=== PATIENT | male | born 1970 | race Caucasian/White ===

== ENCOUNTER → 2016-10-13 | Outpatient (REF) | payer OTHER ==
[~2016-10-13] MED LIST: ASPI81TA85 PO; GLIP5TAB8 PO; LISI-538 PO; METF-700 PO
[2016-10-13 15:59] LABS: ALBUMIN 3.2 GM/DL (3.2-5.2); ALKALINE PHOSPHATASE 124 U/L (45-117); ALT/SGPT 27 U/L (12-78); ANION GAP 7 MEQ/L (8-16); AST/SGOT 13 U/L (15-37); BILIRUBIN,TOTAL 0.2 MG/DL (0.2-1.0); BLOOD UREA NITROGEN 13 MG/DL (7-18); CALCIUM LEVEL 8.6 MG/DL (8.5-10.1); CARBON DIOXIDE LEVEL 29 MEQ/L (21-32); CHLORIDE LEVEL 100 MEQ/L (98-107); CHOLESTEROL LEVEL 140 MG/DL (<200); CREATININE FOR GFR 0.76 MG/DL (0.70-1.30); GLOMERULAR FILTRATION RATE > 60.0 (>60); GLUCOSE, FASTING 297 MG/DL (70-105); POTASSIUM SERUM 4.8 MEQ/L (3.5-5.1); SODIUM LEVEL 136 MEQ/L (136-145); TOTAL PROTEIN 6.1 GM/DL (6.4-8.2); TRIGLYCERIDES LEVEL 127 MG/DL (<150)
== END ==
LOC: M SFHCLACO 09:29
PROVIDERS: ATTEND Physician Assistant
DX: E11.8 Type 2 diabetes mellitus with unspecified complications (principal); I10 Essential (primary) hypertension; E78.1 Pure hyperglyceridemia

== ENCOUNTER → 2017-01-05 | Outpatient (CLI) | payer OTHER ==
[~2017-01-05] VITALS: Ht 172.7 cm; Wt 74.8 kg
[~2017-01-05] MED LIST changes: +COLA100C5 PO; +GLIP10TA6 PO; +LIDOCAINE 2% INJ 100 MG/5 ML SDV (FOR ANES.) As Ordered ONE; +METF-414 PO; +NS 1,000 ML IV ONE; +PREPCRE PR; +PROPOFOL 500 MG/50 ML VIAL As Ordered ONE; +fentaNYL 100 MCG/2 ML INJECTION (J3010) As Ordered ONE
--- NOTE | 2017-01-05 12:25 | ROOR ---
Patient Name: Jose Best Procedure Date: 01/05/2017 12:11 PM Date of : 1970 Age: 46 Room: [facility] Gender: Male Note Status: Finalized Procedure: Upper GI endoscopy Indications: Weight loss Providers: Dwight BELLAMY MD Referring MD: ANGI Mukherjee PA-C Requesting Provider: Medicines: Monitored Anesthesia Care Complications: No immediate complications. Procedure: Pre-Anesthesia Assessment: - The heart rate, respiratory rate, oxygen saturations, blood pressure, adequacy of pulmonary ventilation, and response to care were monitored throughout the procedure. The Endoscope was introduced through the mouth, and advanced to the third part of duodenum. The upper GI endoscopy was accomplished without difficulty. The patient tolerated the procedure well. Findings: The esophagus was normal. The stomach was normal. The examined duodenum was normal. Impression: - Normal esophagus. - Normal stomach. - Normal examined duodenum. - No specimens collected. Recommendation: - Perform a colonoscopy today. Dwight Bellamy MD Dwight BELLAMY MD 01/05/2017 12:25:24 PM This report has been signed electronically. Number of Addenda: 0 Note Initiated On: 01/05/2017 12:11 PM Estimated Blood Loss: Estimated blood loss: none.
--- NOTE | 2017-01-05 12:42 | ROOR ---
Patient Name: Jose Best Procedure Date: 01/05/2017 12:12 PM Date of : 1970 Age: 46 Room: [facility] Gender: Male Note Status: Finalized Procedure: Colonoscopy Indications: Weight loss Providers: Dwight BELLAMY MD Referring MD: ANGI Mukherjee PA-C Requesting Provider: Medicines: Monitored Anesthesia Care Complications: No immediate complications. Procedure: Pre-Anesthesia Assessment: - The heart rate, respiratory rate, oxygen saturations, blood pressure, adequacy of pulmonary ventilation, and response to care were monitored throughout the procedure. The Colonoscope was introduced through the anus and advanced to 7 cm into the ileum. The colonoscopy was performed without difficulty. The patient tolerated the procedure well. The quality of the bowel preparation was good. Findings: The perianal and digital rectal examinations were normal. Internal hemorrhoids were found during retroflexion. The hemorrhoids were medium-sized. A 6 mm polyp was found in the sigmoid colon. The polyp was sessile. The polyp was removed with a cold snare. Resection and retrieval were complete. The rest of the colon and terminal ileum exam are otherwise without abnormality. Impression: - Internal hemorrhoids. - One 6 mm polyp in the sigmoid colon, removed with a cold snare. Resected and retrieved. - The rest of the colon and terminal ileum are otherwise normal. Recommendation: - Repeat colonoscopy in 3 years for surveillance. Dwight Bellamy MD Dwight BELLAMY MD 01/05/2017 12:42:11 PM This report has been signed electronically. Number of Addenda: 0 Note Initiated On: 01/05/2017 12:12 PM Estimated Blood Loss: Estimated blood loss: none.
[2017-01-05 13:05] VITALS: BP 141/86
== END | disposition home or self-care (01) ==
LOC: M OPP 10:39
PROVIDERS: ATTEND Internal Medicine Gastroenterology
DX: R63.4 Abnormal weight loss (principal); K62.5 Hemorrhage of anus and rectum; D12.5 Benign neoplasm of sigmoid colon; K64.8 Other hemorrhoids; I10 Essential (primary) hypertension; E11.9 Type 2 diabetes mellitus without complications; Z79.82 Long term (current) use of aspirin; Z79.84 Long term (current) use of oral hypoglycemic drugs; Z79.899 Other long term (current) drug therapy

== ENCOUNTER 2017-06-14 13:29 | Emergency (ER) | payer OTHER ==
[2017-06-14] MEDS: NS 1,000 ML IV ×2 (14:45→14:53)
[2017-06-14 15:09] LABS: BASO % 0.3 % (0.0-1.0); EOS % 0.4 % (0.0-3.0); HEMATOCRIT 43.1 % (42.0-52.0); HEMOGLOBIN 15.4 g/dl (14.0-18.0); IMMATURE GRANULOCYTE # 0.1 10^3/uL (0-0); IMMATURE GRANULOCYTE % 0.5 % (0-0); LYMPH # 1.8 10^3/uL (1.5-4.5); LYMPH % 18.8 % (24.0-44.0); MEAN CORPUSCULAR HEMOGLOBIN 28.7 pg (27.0-33.0); MEAN CORPUSCULAR HGB CONC 35.7 g/dl (32.0-36.5); MEAN CORPUSCULAR VOLUME 80.4 fl (80.0-96.0); MONO # 0.7 10^3/uL (0.0-0.8); MONO % 7.1 % (0.0-5.0); NEUTROPHILS % 72.9 % (36.0-66.0); PLATELET COUNT, AUTOMATED 331 10^3/uL (150-450); RED BLOOD COUNT 5.36 10^6/uL (4.30-6.10); RED CELL DISTRIBUTION WIDTH 11.6 % (11.5-14.5); WHITE BLOOD COUNT 9.6 10^3/uL (4.0-10.0)
[2017-06-14 15:22] LABS: BEDSIDE GLUCOSE 364 MG/DL (70-105)
[2017-06-14 15:26] LABS: ALBUMIN 3.5 GM/DL (3.2-5.2); ALKALINE PHOSPHATASE 188 U/L (45-117); ALT/SGPT 45 U/L (12-78); ANION GAP 12 MEQ/L (8-16); AST/SGOT 17 U/L (7-37); BILIRUBIN,TOTAL 0.6 MG/DL (0.2-1.0); BLOOD UREA NITROGEN 25 MG/DL (7-18); CALCIUM LEVEL 9.2 MG/DL (8.5-10.1); CARBON DIOXIDE LEVEL 23 MEQ/L (21-32); CHLORIDE LEVEL 89 MEQ/L (98-107); CREATININE FOR GFR 0.86 MG/DL (0.70-1.30); GLOMERULAR FILTRATION RATE > 60.0 (>60); POTASSIUM SERUM 4.7 MEQ/L (3.5-5.1); SODIUM LEVEL 124 MEQ/L (136-145)
[2017-06-14] MEDS: HumuLIN R (REGULAR) INSULIN (NovoLIN R) **100U/ML** PER UNIT IV (15:26)
[2017-06-14 15:38] LABS: ACETONE/KETONE 19.31 MG/DL (<2.81)
[2017-06-14 15:38] LABS: VENOUS BASE EXCESS -4.9 (-2.0-2.0); VENOUS O2 SATURATION 94.9 % (60.0-80.0); VENOUS PARTIAL PRESSURE CO2 32.3 mmHg (38.0-50.0); VENOUS PARTIAL PRESSURE O2 72.9 mmHg (30.0-50.0); VENOUS PH 7.387 UNITS (7.330-7.430); VENOUS STANDARD HCO3 20.4 MEQ/L
[2017-06-14 15:40] LABS: ESTIMATED AVERAGE GLUCOSE 381 MG/DL (60-110); GLUCOSE, FASTING 431 MG/DL (70-105); HEMOGLOBIN A1c 14.9 %
[2017-06-14 16:08] LABS: BEDSIDE GLUCOSE 284 MG/DL (70-105)
[2017-06-14 16:17] LABS: OSMOLALITY SERUM 291 MOSM/KG (275-295)
[2017-06-14 16:37] LABS: APPEARANCE, URINE CLEAR (CLEAR); BACTERIA, URINE AUTO 1+ (NEGATIVE); BILIRUBIN, URINE AUTO NEGATIVE (NEGATIVE); BLOOD, URINE BLOOD NEGATIVE (NEGATIVE); COLOR, URINE YELLOW (YELLOW); GLUCOSE, URINE (UA) AUTO 3+ mg/dL (NEGATIVE); KETONE, URINE AUTO 1+ mg/dL (NEGATIVE); LEUKOCYTE ESTERASE, URINE AUTO NEGATIVE (NEGATIVE); MUCUS, URINE SMALL (NEGATIVE); NITRITE, URINE AUTO NEGATIVE (NEGATIVE); PROTEIN, URINE AUTO NEGATIVE (NEGATIVE); RBC, URINE AUTO 1 /HPF (0-3); SPECIFIC GRAVITY URINE AUTO 1.036 (1.002-1.035); SQUAMOUS EPITHELIAL CELL UR AU 0 /HPF (0-6); UROBILINOGEN, URINE AUTO 0.2 mg/dL (0.0-2.0); WBC, URINE AUTO 1 /HPF (0-3)
== END 2017-06-14 17:27 | disposition home or self-care (01) ==
LOC: M ED 13:29
DX: E11.65 Type 2 diabetes mellitus with hyperglycemia (principal); E86.0 Dehydration; Z79.899 Other long term (current) drug therapy; Z79.82 Long term (current) use of aspirin; Z79.84 Long term (current) use of oral hypoglycemic drugs; Z87.891 Personal history of nicotine dependence
CPT/HCPCS: 83930

== ENCOUNTER → 2017-06-24 | Outpatient (REF) | payer OTHER ==
[2017-06-24 15:40] LABS: ALBUMIN 3.4 GM/DL (3.2-5.2); ALBUMIN/GLOBULIN RATIO 1.26 (1.00-1.93); ALKALINE PHOSPHATASE 116 U/L (45-117); ALT/SGPT 51 U/L (12-78); ANION GAP 8 MEQ/L (8-16); AST/SGOT 27 U/L (7-37); BILIRUBIN,TOTAL 0.6 MG/DL (0.2-1.0); BLOOD UREA NITROGEN 12 MG/DL (7-18); CALCIUM LEVEL 8.4 MG/DL (8.5-10.1); CARBON DIOXIDE LEVEL 28 MEQ/L (21-32); CHLORIDE LEVEL 98 MEQ/L (98-107); CHOLESTEROL LEVEL 221 MG/DL (<200); CHOLESTEROL RISK RATIO 4.169 (<5); CREATININE FOR GFR 0.74 MG/DL (0.70-1.30); GLOMERULAR FILTRATION RATE > 60.0 (>60); GLUCOSE, FASTING 297 MG/DL (70-105); HDL CHOLESTEROL 53 MG/DL (>40); LDL CHOLESTEROL 129.4 MG/DL (<100); NON-HDL-C 168 MG/DL; POTASSIUM SERUM 4.1 MEQ/L (3.5-5.1); SODIUM LEVEL 134 MEQ/L (136-145); TOTAL PROTEIN 6.1 GM/DL (6.4-8.2); TRIGLYCERIDES LEVEL 193 MG/DL (<150)
[2017-06-24 20:19] LABS: ESTIMATED AVERAGE GLUCOSE 413 MG/DL (60-110); HEMOGLOBIN A1c > 16.0 %
== END ==
LOC: M SFHCLACO 09:54
DX: E11.8 Type 2 diabetes mellitus with unspecified complications (principal); E78.1 Pure hyperglyceridemia; I10 Essential (primary) hypertension
CPT/HCPCS: 83036

== ENCOUNTER 2018-12-25 15:10 | Emergency (ER) | payer OTHER, SELFPAY ==
[~2018-12-25] VITALS: Ht 170.2 cm; Wt 65.9 kg
[~2018-12-25 15:10] MED LIST changes: -LIDOCAINE 2% INJ 100 MG/5 ML SDV (FOR ANES.) As Ordered ONE; -NS 1,000 ML IV ONE; -PROPOFOL 500 MG/50 ML VIAL As Ordered ONE; -fentaNYL 100 MCG/2 ML INJECTION (J3010) As Ordered ONE
[2018-12-25 16:42] LABS: BASO % 0.4 % (0.0-1.0); EOS % 0.3 % (0.0-3.0); HEMATOCRIT 47.4 % (42.0-52.0); HEMOGLOBIN 15.9 g/dl (13.5-17.5); LYMPH # 0.8 10^3/uL (1.5-4.5); LYMPH % 9.8 % (24.0-44.0); MEAN CORPUSCULAR HGB CONC 33.5 g/dl (32.0-36.5); MEAN CORPUSCULAR VOLUME 86.5 fl (80.0-96.0); MONO # 0.3 10^3/uL (0.0-0.8); MONO % 3.6 % (0.0-5.0); NEUTROPHILS # 6.7 10^3/uL (1.8-7.7); NEUTROPHILS % 85.6 % (36.0-66.0); PLATELET COUNT, AUTOMATED 248 10^3/uL (150-450); RED BLOOD COUNT 5.48 10^6/uL (4.30-6.10); VENOUS BASE EXCESS -0.6 (-2.0-2.0); VENOUS HCO3 25.7 MEQ/L (23.0-27.0); VENOUS O2 SATURATION 73.8 % (60.0-80.0); VENOUS PARTIAL PRESSURE CO2 48.3 mmHg (38.0-50.0); VENOUS PARTIAL PRESSURE O2 40.5 mmHg (30.0-50.0); VENOUS PH 7.344 UNITS (7.330-7.430); VENOUS STANDARD HCO3 23.3 MEQ/L; VENOUS TOTAL CO2 27.2 MEQ/L (24.0-28.0); WHITE BLOOD COUNT 7.9 10^3/uL (4.0-10.0)
[2018-12-25] MEDS ORDERED: NS 1,000 ML IV ONE (17:15)
[2018-12-25] MEDS ORDERED: MORPHINE 2 MG/ML 1ML SYRINGE (J2270) IV ONE (17:15)
[2018-12-25] MEDS ORDERED: ONDANSETRON 4MG/2ML VIAL (J2405) IV ONE (17:15)
[2018-12-25 17:47] LABS: ALBUMIN 3.8 GM/DL (3.2-5.2); ALT/SGPT 23 U/L (12-78); BILIRUBIN,DIRECT 0.1 MG/DL (0.0-0.2); BILIRUBIN,TOTAL 0.7 MG/DL (0.2-1.0); BLOOD UREA NITROGEN 23 MG/DL (7-18); CALCIUM LEVEL 9.1 MG/DL (8.5-10.1); CARBON DIOXIDE LEVEL 25 MEQ/L (21-32); CHLORIDE LEVEL 104 MEQ/L (98-107); CREATININE FOR GFR 0.83 MG/DL (0.70-1.30); GLOMERULAR FILTRATION RATE > 60.0 (>56); GLUCOSE, FASTING 220 MG/DL (70-100); LIPASE 295 U/L (73-393); POTASSIUM SERUM 4.3 MEQ/L (3.5-5.1); SODIUM LEVEL 137 MEQ/L (136-145); TOTAL PROTEIN 7.6 GM/DL (6.4-8.2)
[2018-12-25] MEDS ORDERED: ZOFR4TAB16 PO (19:09)
--- NOTE | 2018-12-25 19:43 | REPVR ---
EXAM: US Abdomen Limited, Right Upper Quadrant EXAM DATE/TIME: 12/25/2018 6:21 PM CLINICAL HISTORY: 48 years old, male; Abdominal pain; Additional info: Upper abd pain R/O cholecystitis TECHNIQUE: Imaging protocol: Real-time ultrasound of the abdomen with image documentation. Examination was focused on the right upper quadrant. COMPARISON: No relevant prior studies available. FINDINGS: Liver: Normal. No masses. Gallbladder: Normal. No gallstones. There is no gallbladder wall thickening. Common bile duct: Common bile duct measures 2.3 mm. Pancreas: Visualized pancreas is unremarkable. Right kidney: Right kidney measures 9.8 x 5.9 x 4.2 cm. IMPRESSION: No acute findings. Electronically signed by: Moustapha Mak On 12/25/2018 19:42:58 PM
[2018-12-25 19:54] VITALS: BP 147/80
== END 2018-12-25 20:38 | disposition home or self-care (01) ==
LOC: M ED 15:10
DX: R11.10 Vomiting, unspecified (principal); R19.7 Diarrhea, unspecified; R10.9 Unspecified abdominal pain; E11.9 Type 2 diabetes mellitus without complications; I10 Essential (primary) hypertension; E78.5 Hyperlipidemia, unspecified; Z79.899 Other long term (current) drug therapy; Z79.82 Long term (current) use of aspirin; Z79.84 Long term (current) use of oral hypoglycemic drugs
CPT/HCPCS: 76705; 80048; 80076; 82803; 83690; 85025; 96361; 96374; 96375; 99284; J2270; J2405

== ENCOUNTER 2019-06-09 13:48 | Emergency (ER) | payer OTHER, SELFPAY ==
[~2019-06-09] VITALS: Ht 172.7 cm; Wt 68.2 kg
[~2019-06-09 13:48] MED LIST changes: +ZOFR4TAB16 PO
[2019-06-09] MEDS ORDERED: ONDANSETRON 4MG/2ML VIAL (J2405) As Ordered ONE (14:14)
[2019-06-09] MEDS ORDERED: ONDANSETRON 4MG/2ML VIAL (J2405) IV ONE (14:15)
[2019-06-09 14:24] LABS: BASO # 0.1 10^3/uL (0.0-0.2); BASO % 0.6 % (0.0-1.0); EOS % 0.3 % (0.0-3.0); HEMATOCRIT 48.3 % (42.0-52.0); HEMOGLOBIN 16.3 g/dl (13.5-17.5); LYMPH % 11.3 % (24.0-44.0); MEAN CORPUSCULAR HEMOGLOBIN 28.8 pg (27.0-33.0); MEAN CORPUSCULAR HGB CONC 33.7 g/dl (32.0-36.5); MEAN CORPUSCULAR VOLUME 85.3 fl (80.0-96.0); MONO # 0.5 10^3/uL (0.0-0.8); MONO % 5.7 % (0.0-5.0); NEUTROPHILS # 7.2 10^3/uL (1.5-8.5); NEUTROPHILS % 81.9 % (36.0-66.0); PLATELET COUNT, AUTOMATED 289 10^3/uL (150-450); RED BLOOD COUNT 5.66 10^6/uL (4.30-6.10); WHITE BLOOD COUNT 8.8 10^3/uL (4.0-10.0)
[2019-06-09] MEDS ORDERED: GI COCKTAIL 50ML BTL(HYOSCYAMINE/MAALOX/LIDOCAINE VISCOUS)(1:3:1) PO ONE (14:45)
[2019-06-09 14:47] LABS: ALBUMIN 4.2 GM/DL (3.2-5.2); ALT/SGPT 22 U/L (12-78); BILIRUBIN,DIRECT 0.2 MG/DL (0.0-0.2); BILIRUBIN,TOTAL 0.9 MG/DL (0.2-1.0); BLOOD UREA NITROGEN 20 MG/DL (7-18); CALCIUM LEVEL 9.9 MG/DL (8.5-10.1); CARBON DIOXIDE LEVEL 27 MEQ/L (21-32); CHLORIDE LEVEL 100 MEQ/L (98-107); CREATININE FOR GFR 0.98 MG/DL (0.70-1.30); GLOMERULAR FILTRATION RATE > 60.0 (>56); GLUCOSE, FASTING 260 MG/DL (70-100); LIPASE 101 U/L (73-393); POTASSIUM SERUM 4.1 MEQ/L (3.5-5.1); SODIUM LEVEL 137 MEQ/L (136-145); TOTAL PROTEIN 7.5 GM/DL (6.4-8.2)
[2019-06-09] MEDS ORDERED: ISOVUE-370 76% 100ML VIAL (Q9967) As Ordered ONE (14:52)
[2019-06-09 15:12] LABS: CPK CREATINE PHOSPHOKINASE 163 U/L (39-308); MB/CK RELATIVE INDEX 1.84 (< OR =4); TROPONIN I < 0.02 NG/ML (< 0.10)
--- NOTE | 2019-06-09 15:38 | REP ---
Clinical: Abdominal pain. Technique: Axial contrast enhanced images from the lung bases to the pubic symphysis using 100 ml Isovue 370 intravenous contrast material with coronal and sagittal re-formations. Comparison: 01/10/2013. Findings: Lung bases are clear. Visualized heart and pericardium normal. Liver, spleen, pancreas, gallbladder, bilateral kidneys and right adrenal gland are normal. Stable 2 cm left adrenal nodule consistent with atypical adenoma. The enteric system is without obstruction or acute inflammatory process. Distended rectum to 6.7 cm may reflect constipation and fecal impaction. Few scattered sigmoid diverticula noted without acute diverticulitis. 1.8 cm fat containing periumbilical hernia remains stable. Pelvis demonstrates normal bladder and mildly prominent prostate gland. No ascites. No free air. No adenopathy. Abdominal aorta and vasculature normal. Musculoskeletal structures demonstrate degenerative changes. Impression: 1. Moderately distended rectosigmoid suggests fecal stasis and possible fecal impaction. 2. Stable left adrenal adenoma. 3. Stable periumbilical fat-containing hernia. 4. No further acute abdominopelvic pathology appreciated. No ascites. No free air. No adenopathy. No focal inflammatory stranding. Electronically Signed by Flako Nash MD 06/09/2019 03:30 P
[2019-06-09] MEDS ORDERED: NS 1,000 ML IV ONE (17:30)
[2019-06-09 18:45] VITALS: BP 166/93
[2019-06-09] MEDS ORDERED: OMEP40CA97 PO (18:48)
[2019-06-09] MEDS ORDERED: MIRA3350 PO (18:48)
[2019-06-09] MEDS ORDERED: SUCR1TA PO (18:48)
--- NOTE | 2019-06-11 15:08 | ECGEPIP ---
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
== END 2019-06-09 18:59 | disposition home or self-care (01) ==
LOC: M ED 13:48
DX: K29.70 Gastritis, unspecified, without bleeding (principal); K59.00 Constipation, unspecified; E11.9 Type 2 diabetes mellitus without complications; I10 Essential (primary) hypertension; Z79.82 Long term (current) use of aspirin; Z79.84 Long term (current) use of oral hypoglycemic drugs; Z79.899 Other long term (current) drug therapy
CPT/HCPCS: 74177; 80048; 80076; 82550; 82553; 83690; 85025; 93005; 96361; 96374; 99285; J2405; Q9967

== ENCOUNTER → 2019-07-17 | Outpatient (REF) | payer OTHER ==
[~2019-07-17] MED LIST changes: +MIRA3350 PO; +OMEP40CA97 PO; +SUCR1TA PO
[2019-07-17 13:50] LABS: ALBUMIN 3.5 GM/DL (3.2-5.2); ALT/SGPT 19 U/L (12-78); BILIRUBIN,TOTAL 0.3 MG/DL (0.2-1.0); BLOOD UREA NITROGEN 24 MG/DL (7-18); CALCIUM LEVEL 8.6 MG/DL (8.5-10.1); CARBON DIOXIDE LEVEL 27 MEQ/L (21-32); CHLORIDE LEVEL 103 MEQ/L (98-107); CHOLESTEROL LEVEL 160 MG/DL (<200); CREATININE FOR GFR 0.76 MG/DL (0.70-1.30); GLOMERULAR FILTRATION RATE > 60.0 (>56); GLUCOSE, FASTING 137 MG/DL (70-100); HDL CHOLESTEROL 50 MG/DL (>40); LDL CHOLESTEROL 93 MG/DL (<100); NON-HDL-C 110 MG/DL; POTASSIUM SERUM 4.3 MEQ/L (3.5-5.1); SODIUM LEVEL 138 MEQ/L (136-145); TOTAL PROTEIN 6.6 GM/DL (6.4-8.2); TRIGLYCERIDES LEVEL 83 MG/DL (<150)
[2019-07-17 14:37] LABS: HEMOGLOBIN A1c 10.8 %
== END ==
LOC: M LABDRWAD 13:14
PROVIDERS: ATTEND Physician Assistant
DX: I10 Essential (primary) hypertension (principal); E78.1 Pure hyperglyceridemia; E11.8 Type 2 diabetes mellitus with unspecified complications

== ENCOUNTER 2019-09-26 06:33 | Emergency (ER) | payer MEDICAID, OTHER, SELFPAY ==
[~2019-09-26] VITALS: Ht 172.7 cm; Wt 68.2 kg
[2019-09-26] MEDS ORDERED: PANTOPRAZOLE 40MG INJ (PROTONIX) (C9113) IV ONE (07:00)
[2019-09-26] MEDS ORDERED: ONDANSETRON 4MG/2ML VIAL (J2405) IV ONE (07:00)
[2019-09-26] MEDS ORDERED: NS 1,000 ML IV ONE (07:00)
[2019-09-26 07:30] LABS: BASO # 0.1 10^3/uL (0.0-0.2); BASO % 0.6 % (0.0-1.0); EOS % 0.2 % (0.0-3.0); HEMATOCRIT 44.1 % (42.0-52.0); HEMOGLOBIN 14.9 g/dl (13.5-17.5); LYMPH % 7.9 % (24.0-44.0); MEAN CORPUSCULAR HEMOGLOBIN 29.4 pg (27.0-33.0); MEAN CORPUSCULAR HGB CONC 33.8 g/dl (32.0-36.5); MEAN CORPUSCULAR VOLUME 87.2 fl (80.0-96.0); MONO # 0.4 10^3/uL (0.0-0.8); NEUTROPHILS % 87.8 % (36.0-66.0); PLATELET COUNT, AUTOMATED 279 10^3/uL (150-450); RED BLOOD COUNT 5.06 10^6/uL (4.30-6.10); WHITE BLOOD COUNT 12.5 10^3/uL (4.0-10.0)
[2019-09-26 07:49] LABS: ALBUMIN 3.4 GM/DL (3.2-5.2); ALT/SGPT 22 U/L (12-78); BILIRUBIN,DIRECT 0.1 MG/DL (0.0-0.2); BILIRUBIN,TOTAL 0.5 MG/DL (0.2-1.0); CK-MB VALUE MASS 2.5 NG/ML (<3.6); CPK CREATINE PHOSPHOKINASE 164 U/L (39-308); LIPASE 127 U/L (73-393); MB/CK RELATIVE INDEX 1.52 (< OR =4); TOTAL PROTEIN 6.9 GM/DL (6.4-8.2); TROPONIN I < 0.02 NG/ML (< 0.10)
[2019-09-26] MEDS ORDERED: ISOVUE-370 76% 100ML VIAL (Q9967) As Ordered ONE (08:11)
[2019-09-26] MEDS ORDERED: GI COCKTAIL 50ML BTL(HYOSCYAMINE/MAALOX/LIDOCAINE VISCOUS)(1:3:1) PO ONE (08:30)
[2019-09-26] MEDS ORDERED: METOCLOPRAMIDE INJ 10MG/2ML VIAL (J2765) IV ONE (08:30)
[2019-09-26] MEDS ORDERED: SUCR1TA PO (09:03)
[2019-09-26] MEDS ORDERED: OMEP40CA97 PO (09:03)
[2019-09-26] MEDS ORDERED: ONDA4TAB6 PO (09:04)
[2019-09-26 09:16] VITALS: BP 160/92
--- NOTE | 2019-09-26 09:16 | REP ---
REASON: Nausea, vomiting, and diarrhea. COMPARISON: 06/09/2019. CONTRAST: 100 mL Isovue 370. Lung bases are clear. The liver, gallbladder, spleen, pancreas, adrenal glands, and kidneys are within normal limits. There is stable focal thickening of the left adrenal gland. The abdominal aorta and paraaortic regions are within normal limits. The bowel loops and their mesenteries are within normal limits. There is no free fluid or free air. There is no intra-abdominal mass or adenopathy. CT PELVIS: The bowel loops and their mesenteries are within normal limits. There is no free fluid or free air. There is no mass or adenopathy. Bone window technique throughout the examination shows the osseous structures to be stable and intact. There is an unchanged small infraumbilical ventral rent through which a small amount of mesentery protrudes. IMPRESSION: No acute disease. Findings as described above. Electronically Signed by Sandeep Syed DO 09/26/2019 10:55 A
--- NOTE | 2019-09-26 09:17 | ECGEPIP ---
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
== END 2019-09-26 09:17 | disposition home or self-care (01) ==
LOC: M ED 06:33
DX: R11.2 Nausea with vomiting, unspecified (principal); R19.7 Diarrhea, unspecified; E11.65 Type 2 diabetes mellitus with hyperglycemia; R00.1 Bradycardia, unspecified; I10 Essential (primary) hypertension; F12.10 Cannabis abuse, uncomplicated; Z79.82 Long term (current) use of aspirin; Z79.84 Long term (current) use of oral hypoglycemic drugs; Z79.899 Other long term (current) drug therapy
CPT/HCPCS: 36415; 74177; 80047; 80076; 81001; 82550; 82553; 83690; 84484; 85025; 93005; 96361; 96374; 96375; 99284; C9113; J2405; J2765; Q9967

== ENCOUNTER 2019-10-08 12:16 | Emergency (ER) | payer SELFPAY ==
[~2019-10-08] VITALS: Ht 172.7 cm; Wt 69.1 kg
[~2019-10-08 12:16] MED LIST changes: +ONDA4TAB6 PO
[2019-10-08] MEDS ORDERED: NS 1,000 ML IV ONE (12:45)
[2019-10-08] MEDS ORDERED: HALOPERIDOL 5MG/ML VIAL (J1630 PER 1) IV ONE (12:45)
[2019-10-08 13:04] LABS: BASO % 0.5 % (0.0-1.0); EOS % 0.4 % (0.0-3.0); HEMOGLOBIN 14.8 g/dl (13.5-17.5); LYMPH # 0.9 10^3/uL (1.5-5.0); LYMPH % 11.4 % (24.0-44.0); MEAN CORPUSCULAR HEMOGLOBIN 28.9 pg (27.0-33.0); MEAN CORPUSCULAR HGB CONC 34.4 g/dl (32.0-36.5); MONO # 0.4 10^3/uL (0.0-0.8); MONO % 5.1 % (0.0-5.0); NEUTROPHILS # 6.4 10^3/uL (1.5-8.5); NEUTROPHILS % 82.2 % (36.0-66.0); PLATELET COUNT, AUTOMATED 281 10^3/uL (150-450); RED BLOOD COUNT 5.12 10^6/uL (4.30-6.10); WHITE BLOOD COUNT 7.8 10^3/uL (4.0-10.0)
[2019-10-08 13:31] LABS: ALBUMIN 3.4 GM/DL (3.2-5.2); ALT/SGPT 21 U/L (12-78); BILIRUBIN,DIRECT 0.1 MG/DL (0.0-0.2); BILIRUBIN,TOTAL 0.6 MG/DL (0.2-1.0); BLOOD UREA NITROGEN 18 MG/DL (7-18); CALCIUM LEVEL 8.9 MG/DL (8.5-10.1); CARBON DIOXIDE LEVEL 28 MEQ/L (21-32); CHLORIDE LEVEL 101 MEQ/L (98-107); CK-MB VALUE MASS 1.1 NG/ML (<3.6); CPK CREATINE PHOSPHOKINASE 59 U/L (39-308); CREATININE FOR GFR 0.91 MG/DL (0.70-1.30); GLOMERULAR FILTRATION RATE > 60.0 (>56); GLUCOSE, FASTING 238 MG/DL (70-100); LIPASE 92 U/L (73-393); MB/CK RELATIVE INDEX 1.86 (< OR =4); POTASSIUM SERUM 4.6 MEQ/L (3.5-5.1); SODIUM LEVEL 137 MEQ/L (136-145); TOTAL PROTEIN 7.2 GM/DL (6.4-8.2); TROPONIN I < 0.02 NG/ML (< 0.10)
--- NOTE | 2019-10-08 13:46 | REP ---
CT BRAIN WITHOUT CONTRAST: CT brain performed without IV contrast. Coronal reconstruction images are performed. Ventricles are normal in size and position with no midline shift or mass effect. Mcdaniel-white differentiation is well maintained. There is no acute intracranial hemorrhage. There is no mass extra-axial fluid collection. No skull fracture is seen. Mastoid air cells and visualized paranasal sinuses are clear. IMPRESSION: Negative noncontrast CT brain. Electronically Signed by Hansel Mcdaniel MD 10/08/2019 09:57 P
[2019-10-08] MEDS ORDERED: REGL10TA6 PO (14:28)
[2019-10-08 14:49] VITALS: BP 161/86
--- NOTE | 2019-10-08 16:19 | ECGEPIP ---
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
== END 2019-10-08 14:52 | disposition home or self-care (01) ==
LOC: M ED 12:16
DX: R11.2 Nausea with vomiting, unspecified (principal); R10.9 Unspecified abdominal pain; I10 Essential (primary) hypertension; E11.9 Type 2 diabetes mellitus without complications; K21.9 Gastro-esophageal reflux disease without esophagitis; F12.10 Cannabis abuse, uncomplicated
CPT/HCPCS: 70450; 80048; 80076; 82550; 82553; 83690; 84484; 85025; 93005; 93041; 94760; 96361; 96374; 99284; J1630

== ENCOUNTER → 2021-02-14 | Outpatient (REF) | payer OTHER, SELFPAY ==
[~2021-02-14] MED LIST changes: -ASPI81TA85 PO; +ASPI81TA86 PO; -LISI-538 PO; +LISI20TA33 PO; -METF-700 PO; +METF-818 PO; +OMEP40CA4 PO; -OMEP40CA97 PO; +PHEN26CR PR; -PREPCRE PR; +REGL10TA6 PO
[2021-02-14 11:06] LABS: HEMOGLOBIN A1c 12.6 %
[2021-02-14 11:14] LABS: ALBUMIN 3.3 GM/DL (3.2-5.2); ALT/SGPT 25 U/L (12-78); BILIRUBIN,TOTAL 0.4 MG/DL (0.2-1.0); BLOOD UREA NITROGEN 15 MG/DL (7-18); CALCIUM LEVEL 9.2 MG/DL (8.5-10.1); CARBON DIOXIDE LEVEL 32 MEQ/L (21-32); CHLORIDE LEVEL 99 MEQ/L (98-107); CHOLESTEROL LEVEL 208 MG/DL (<200); CHOLESTEROL RISK RATIO 3.649 (<5); CREATININE FOR GFR 0.87 MG/DL (0.70-1.30); GLOMERULAR FILTRATION RATE > 60.0 (>56); GLUCOSE, FASTING 369 MG/DL (70-100); HDL CHOLESTEROL 57 MG/DL (>40); LDL CHOLESTEROL 129 MG/DL (<100); NON-HDL-C 151 MG/DL; POTASSIUM SERUM 4.9 MEQ/L (3.5-5.1); SODIUM LEVEL 137 MEQ/L (136-145); TOTAL PROTEIN 6.6 GM/DL (6.4-8.2); TRIGLYCERIDES LEVEL 109 MG/DL (<150)
== END ==
LOC: M SFHCADAM 09:15
PROVIDERS: ATTEND Physician Assistant
DX: I10 Essential (primary) hypertension (principal); E78.1 Pure hyperglyceridemia; E11.8 Type 2 diabetes mellitus with unspecified complications; K21.9 Gastro-esophageal reflux disease without esophagitis

== ENCOUNTER 2021-06-16 02:05 | Emergency (ER) | payer SELFPAY ==
[~2021-06-16] VITALS: Ht 172.7 cm; Wt 61.4 kg
[2021-06-16 02:06] VITALS: BP 138/84
--- NOTE | 2021-06-16 03:04 | REPVR ---
PROCEDURE INFORMATION: Exam: XR Right Hip Exam date and time: 06/16/2021 2:45 AM Age: 51 years old Clinical indication: Hip pain and pelvic pain; Right hip; Additional info: Trauma TECHNIQUE: Imaging protocol: XR Right hip. Views: 2 or 3 views hip with pelvis when performed. COMPARISON: CT ABD/PEL W/IV CONTRAST ONLY 09/26/2019 8:14 AM FINDINGS: Bones/joints: Unremarkable. No acute fracture. Soft tissues: Unremarkable. IMPRESSION: Negative right hip and pelvis. Electronically signed by: Robby Mcneil On 06/16/2021 03:03:54 AM
== END 2021-06-16 05:36 | disposition left against medical advice (07) ==
LOC: M ED 02:05
DX: Z53.21 Procedure and treatment not carried out due to patient leaving prior to being seen by health care provider (principal)

== ENCOUNTER → 2022-03-03 | Outpatient (REF) | payer SELFPAY ==
[2022-03-03 17:03] LABS: BASO # 0.1 10^3/uL (0.0-0.2); BASO % 0.7 % (0.0-1.0); EOS # 0.1 10^3/uL (0.0-0.5); EOS % 0.7 % (0.0-3.0); HEMATOCRIT 41.2 % (42.0-52.0); LYMPH # 1.8 10^3/uL (1.5-5.0); LYMPH % 21.9 % (24.0-44.0); MEAN CORPUSCULAR HEMOGLOBIN 29.4 pg (27.0-33.0); MEAN CORPUSCULAR VOLUME 86.6 fl (80.0-96.0); MONO # 0.6 10^3/uL (0.0-0.8); MONO % 7.1 % (2.0-8.0); NEUTROPHILS # 5.7 10^3/uL (1.5-8.5); NEUTROPHILS % 69.2 % (36.0-66.0); PLATELET COUNT, AUTOMATED 333 10^3/uL (150-450); RED BLOOD COUNT 4.76 10^6/uL (4.30-6.10); WHITE BLOOD COUNT 8.2 10^3/uL (4.0-10.0)
[2022-03-03 17:40] LABS: ALBUMIN 3.4 GM/DL (3.2-5.2); ALT/SGPT 19 U/L (12-78); BILIRUBIN,TOTAL 0.5 MG/DL (0.2-1.0); BLOOD UREA NITROGEN 21 MG/DL (7-18); CALCIUM LEVEL 8.7 MG/DL (8.5-10.1); CARBON DIOXIDE LEVEL 27 MEQ/L (21-32); CHLORIDE LEVEL 98 MEQ/L (98-107); CHOLESTEROL LEVEL 195 MG/DL (<200); CREATININE FOR GFR 0.84 MG/DL (0.70-1.30); GLOMERULAR FILTRATION RATE > 60.0 (>56); GLUCOSE, FASTING 316 MG/DL (70-100); HDL CHOLESTEROL 67 MG/DL (>40); LDL CHOLESTEROL 115 MG/DL (<100); NON-HDL-C 128 MG/DL; POTASSIUM SERUM 4.4 MEQ/L (3.5-5.1); SODIUM LEVEL 132 MEQ/L (136-145); TOTAL PROTEIN 6.5 GM/DL (6.4-8.2); TRIGLYCERIDES LEVEL 67 MG/DL (<150)
[2022-03-03 19:39] LABS: HEMOGLOBIN A1c 13.6 %
== END ==
LOC: M SFHCADAM 16:18
PROVIDERS: ATTEND Physician Assistant
DX: E11.8 Type 2 diabetes mellitus with unspecified complications (principal); I10 Essential (primary) hypertension; E78.1 Pure hyperglyceridemia; K21.9 Gastro-esophageal reflux disease without esophagitis; Z12.11 Encounter for screening for malignant neoplasm of colon; R39.11 Hesitancy of micturition
CPT/HCPCS: 80053; 80061; 83036; 84443; 85025; G0103

== ENCOUNTER 2023-04-01 23:42 | Inpatient (IN) | payer OTHER, SELFPAY ==
[~2023-04-01] VITALS: Ht 170.2 cm; Wt 65.0 kg
[~2023-04-01 23:42] MED LIST changes: +GLIP5TAB17 PO; -GLIP5TAB8 PO
[2023-04-01] MEDS ORDERED: NOVOINJ13 (23:50)
[2023-04-02] VITALS (7 sets, daily range): BP systolic 108–134; BP diastolic 61–82; TEMP 98.2–101; O2SAT 96–99
[2023-04-02] MEDS ORDERED: CLINDAMYCIN 600 MG in IV 1 EA IV ONE (00:10)
[2023-04-02 00:33] LABS: BASO # 0.1 10^3/uL (0.0-0.2); BASO % 0.4 % (0.0-1.0); EOS # 0.1 10^3/uL (0.0-0.5); EOS % 0.7 % (0.0-3.0); HEMATOCRIT 35.6 % (42.0-52.0); HEMOGLOBIN 12.3 g/dl (13.5-17.5); LYMPH # 0.9 10^3/uL (1.5-5.0); MEAN CORPUSCULAR HEMOGLOBIN 28.7 pg (27.0-33.0); MEAN CORPUSCULAR HGB CONC 34.6 g/dl (32.0-36.5); MONO # 1.2 10^3/uL (0.0-0.8); MONO % 6.8 % (2.0-8.0); NEUTROPHILS # 14.6 10^3/uL (1.5-8.5); NEUTROPHILS % 86.7 % (36.0-66.0); PLATELET COUNT, AUTOMATED 272 10^3/uL (150-450); RED BLOOD COUNT 4.29 10^6/uL (4.30-6.10); WHITE BLOOD COUNT 16.9 10^3/uL (4.0-10.0)
[2023-04-02] MEDS ORDERED: HumuLIN R (REGULAR) INSULIN (NovoLIN R) **100U/ML** PER UNIT IV ONE (00:50)
[2023-04-02] MEDS ORDERED: VANCOMYCIN HCL 1,250 MG in NS 250 ML IV ONE (00:55)
[2023-04-02] MEDS ORDERED: PIPERACILLIN/TAZOBACTAM SOD 3.375 GM in D5W MINI-BAG PLUS 50 ML IV ONE (00:55)
[2023-04-02] MEDS ORDERED: KETOROLAC 30 MG/ML 1ML VIAL IV ONE (01:00)
[2023-04-02 01:14] LABS: ABG BASE EXCESS 0.1 (-2.0-2.0); ABG HCO3 24.2 MMOL/L (22.0-26.0); ABG O2 SATURATION 97.2 % (95.0-99.0); ABG PARTIAL PRESSURE CO2 37.7 mmHg (35.0-45.0); ABG PARTIAL PRESSURE O2 94.9 mmHg (75.0-100.0); ABG STANDARD HCO3 24.6 MMOL/L. (22.0-26.0); ABG TOTAL CO2 25.4 MMOL/L (22.0-29.0); ABG pH (ARTERIAL) 7.426 UNITS (7.350-7.450)
[2023-04-02 01:17] LABS: RSV AMPLIFICATION NEGATIVE (NEGATIVE)
[2023-04-02] MEDS ORDERED: VANCOMYCIN HCL 500 MG in D5W MINI-BAG PLUS 100 ML IV ONE (02:00)
[2023-04-02] MEDS ORDERED: VANCOMYCIN HCL 750 MG, VIAL MATE ADAPTER 1 EACH in D5W 250 ML IV ONE (02:00)
[2023-04-02] MEDS ORDERED: ASPI-161 PO (02:12)
[2023-04-02] MEDS ORDERED: NOVOINJ13 SC (02:13)
[2023-04-02] MEDS ORDERED: MED REC IN PROGRESS XX SCH (02:15)
[2023-04-02 02:16] LABS: OSMOLALITY SERUM 304 MOSM/KG (275-295)
[2023-04-02] MEDS ORDERED: INSULIN LISPRO (NovoLOG) PER UNIT SC STA ×2 (02:33→03:36)
[2023-04-02] MEDS ORDERED: SODIUM CHLORIDE 0.9% 1000ML IV STA (02:33)
[2023-04-02] MEDS ORDERED: DEXTROSE 50% 50ML SYRINGE IV PRN (04:10)
[2023-04-02] MEDS ORDERED: GLUCAGON INJ 1MG VIAL SC PRN (04:10)
[2023-04-02] MEDS ORDERED: GLUCOSE 4GM CHEW TABLET PO PRN (04:10)
[2023-04-02] MEDS: NS 1,000 ML IV SCH ×2 (04:20→14:10)
[2023-04-02] MEDS: MORPHINE 2 MG/ML 1ML VIAL IV PRN ×3 (04:20→17:58)
[2023-04-02] MEDS: NORCO, ANEXSIA 5/325MG TABLET (HYDROcodone/ACETAMINOPHEN) PO PRN ×3 (07:18→20:11)
[2023-04-02] MEDS: PIPERACILLIN/TAZOBACTAM SOD 4.5 GM in D5W MINI-BAG PLUS 50 ML IV SCH ×2 (08:29→14:10)
[2023-04-02] MEDS: ENOXAPARIN 40MG/0.4ML SYRINGE (J1650 PER 10MG) SC SCH (08:30)
[2023-04-02] MEDS: INSULIN LISPRO (NovoLOG) PER UNIT SC SCH ×4 (08:31→20:26)
[2023-04-02] MEDS: LEVEMIR (INSULIN DETEMIR) 1 UNITS/0.01ML SC SCH ×2 (08:31→20:10)
[2023-04-02] MEDS ORDERED: HOME MED LIST COMPLETE! XX SCH (10:25)
[2023-04-02] MEDS ORDERED: LIDOCAINE 1% MDV 20ML VIAL SC STA (11:12)
[2023-04-02] MEDS: VANCOMYCIN HCL 1,000 MG, VIAL MATE ADAPTER 1 EACH in NS 250 ML IV SCH ×2 (12:31→23:07)
[2023-04-02] MEDS: ACETAMINOPHEN TAB 650MG DOSE (2X325MG) PO PRN (12:53)
[2023-04-02] MEDS ORDERED: BOOSTRIX VACCINE (TETANUS/DIPHTH/ACEL. PERTUSSIS) 0.5ML SYR IM ONE (13:00)
[2023-04-02 13:44] LABS: ALKALINE PHOSPHATASE 166 U/L (40-129); ALT/SGPT 15 U/L (1-41); AST/SGOT 12 U/L (5-40)
[2023-04-02 13:45] LABS: ALBUMIN 3.3 G/DL (3.9-5.0); BILIRUBIN,DIRECT < 0.2 MG/DL (0.1-0.4); BILIRUBIN,TOTAL < 0.7 MG/DL (0.2-1.3); LIPASE 38 U/L (13-60); TOTAL PROTEIN 5.8 G/DL (6.3-8.2)
[2023-04-03] VITALS: BP 117/72; TEMP 97.9; O2SAT 98
[2023-04-03 04:00] VITALS: BP 118/70; TEMP 98.2; O2SAT 98
[2023-04-03] MEDS: NORCO, ANEXSIA 5/325MG TABLET (HYDROcodone/ACETAMINOPHEN) PO PRN ×3 (04:00→18:19)
[2023-04-03 04:23] LABS: BASO # 0.1 10^3/uL (0.0-0.2); BASO % 0.4 % (0.0-1.0); EOS # 0.2 10^3/uL (0.0-0.5); EOS % 1.5 % (0.0-3.0); HEMATOCRIT 36.3 % (42.0-52.0); HEMOGLOBIN 12.4 g/dl (13.5-17.5); LYMPH # 1.1 10^3/uL (1.5-5.0); LYMPH % 8.5 % (24.0-44.0); MEAN CORPUSCULAR HEMOGLOBIN 28.3 pg (27.0-33.0); MEAN CORPUSCULAR HGB CONC 34.2 g/dl (32.0-36.5); MEAN CORPUSCULAR VOLUME 82.9 fl (80.0-96.0); MONO # 0.9 10^3/uL (0.0-0.8); MONO % 6.6 % (2.0-8.0); NEUTROPHILS # 10.8 10^3/uL (1.5-8.5); NEUTROPHILS % 82.6 % (36.0-66.0); PLATELET COUNT, AUTOMATED 254 10^3/uL (150-450); RED BLOOD COUNT 4.38 10^6/uL (4.30-6.10)
[2023-04-03 06:56] LABS: C REACTIVE PROTEIN QUANTITATIV 139.28 MG/L (1.00-3.00)
[2023-04-03 08:00] VITALS: BP 111/81; TEMP 98; O2SAT 98
[2023-04-03] MEDS: LEVEMIR (INSULIN DETEMIR) 1 UNITS/0.01ML SC SCH (08:32)
[2023-04-03] MEDS: INSULIN LISPRO (NovoLOG) PER UNIT SC SCH ×4 (08:32→20:15)
[2023-04-03] MEDS: ENOXAPARIN 40MG/0.4ML SYRINGE (J1650 PER 10MG) SC SCH (08:33)
[2023-04-03 10:36] LABS: BLOOD UREA NITROGEN 22 MG/DL (7-21); CREATININE FOR GFR 0.7 MG/DL (0.7-1.5); GLOMERULAR FILTRATION RATE > 60.0 (>56); GLUCOSE, FASTING 211 MG/DL (70-99); POTASSIUM SERUM 4.2 MEQ/L (3.6-5.0); SODIUM LEVEL 132 MEQ/L (134-153)
[2023-04-03 10:37] LABS: CALCIUM LEVEL 8.1 MG/DL (8.4-10.2); CARBON DIOXIDE LEVEL 23 MEQ/L (22-30); CHLORIDE LEVEL 98 MEQ/L (98-107)
[2023-04-03] MEDS: VANCOMYCIN HCL 1,000 MG, VIAL MATE ADAPTER 1 EACH in NS 250 ML IV SCH (11:59)
[2023-04-03 12:00] VITALS: BP 118/81; TEMP 97.9; O2SAT 98
[2023-04-03] MEDS: MORPHINE 2 MG/ML 1ML VIAL IV PRN (16:40)
[2023-04-03] MEDS: cefTRIAXone SOD 2 GM in D5W MINI-BAG PLUS 50 ML IV SCH (16:41)
[2023-04-03] MEDS: ACETAMINOPHEN TAB 650MG DOSE (2X325MG) PO PRN (19:28)
[2023-04-03 20:00] VITALS: BP 133/79; TEMP 99.3; O2SAT 97
[2023-04-03] MEDS ORDERED: LEVEMIR (INSULIN DETEMIR) 1 UNITS/0.01ML SC SCH (21:00)
[2023-04-04 02:00] VITALS: BP 135/82; TEMP 97.7; O2SAT 98
[2023-04-04] MEDS: NORCO, ANEXSIA 5/325MG TABLET (HYDROcodone/ACETAMINOPHEN) PO PRN ×2 (02:52→17:49)
[2023-04-04 04:19] LABS: BASO % 0.4 % (0.0-1.0); EOS # 0.2 10^3/uL (0.0-0.5); EOS % 2.7 % (0.0-3.0); HEMATOCRIT 33.8 % (42.0-52.0); HEMOGLOBIN 11.4 g/dl (13.5-17.5); LYMPH # 1.2 10^3/uL (1.5-5.0); LYMPH % 13.9 % (24.0-44.0); MEAN CORPUSCULAR HEMOGLOBIN 27.9 pg (27.0-33.0); MEAN CORPUSCULAR HGB CONC 33.7 g/dl (32.0-36.5); MEAN CORPUSCULAR VOLUME 82.8 fl (80.0-96.0); MONO # 0.7 10^3/uL (0.0-0.8); MONO % 7.8 % (2.0-8.0); NEUTROPHILS # 6.2 10^3/uL (1.5-8.5); NEUTROPHILS % 74.8 % (36.0-66.0); PLATELET COUNT, AUTOMATED 255 10^3/uL (150-450); RED BLOOD COUNT 4.08 10^6/uL (4.30-6.10); WHITE BLOOD COUNT 8.3 10^3/uL (4.0-10.0)
[2023-04-04 07:40] VITALS: BP 124/76; TEMP 98; O2SAT 98
[2023-04-04] MEDS: ENOXAPARIN 40MG/0.4ML SYRINGE (J1650 PER 10MG) SC SCH (08:06)
[2023-04-04] MEDS: LEVEMIR (INSULIN DETEMIR) 1 UNITS/0.01ML SC SCH ×2 (08:07→20:54)
[2023-04-04] MEDS: INSULIN LISPRO (NovoLOG) PER UNIT SC SCH ×4 (08:08→20:54)
[2023-04-04] MEDS: ACETAMINOPHEN TAB 650MG DOSE (2X325MG) PO PRN (10:49)
[2023-04-04 11:15] LABS: BLOOD UREA NITROGEN 14 MG/DL (7-21); CALCIUM LEVEL 8.1 MG/DL (8.4-10.2); CARBON DIOXIDE LEVEL 23 MEQ/L (22-30); CHLORIDE LEVEL 98 MEQ/L (98-107); CREATININE FOR GFR 0.6 MG/DL (0.7-1.5); GLOMERULAR FILTRATION RATE > 60.0 (>56); GLUCOSE, FASTING 214 MG/DL (70-99); POTASSIUM SERUM 4.6 MEQ/L (3.6-5.0); SODIUM LEVEL 132 MEQ/L (134-153)
[2023-04-04 12:55] VITALS: BP 141/81; TEMP 97.7; O2SAT 98
[2023-04-04] MEDS: cefTRIAXone SOD 2 GM in D5W MINI-BAG PLUS 50 ML IV SCH (16:44)
[2023-04-04 20:07] VITALS: BP 100/68; TEMP 98.1; O2SAT 99
[2023-04-04] MEDS: VANICREAM MOISTURIZING SKIN CREAM 113GM TUBE TOP SCH (20:55)
[2023-04-04] MEDS: MORPHINE 2 MG/ML 1ML VIAL IV PRN (21:02)
[2023-04-05] MEDS: NORCO, ANEXSIA 5/325MG TABLET (HYDROcodone/ACETAMINOPHEN) PO PRN ×2 (01:24→23:43)
[2023-04-05 05:46] VITALS: BP 118/70; TEMP 97.7; O2SAT 99
[2023-04-05 05:50] LABS: BASO % 0.6 % (0.0-1.0); EOS # 0.2 10^3/uL (0.0-0.5); EOS % 3.2 % (0.0-3.0); HEMATOCRIT 35.1 % (42.0-52.0); HEMOGLOBIN 11.6 g/dl (13.5-17.5); LYMPH # 1.2 10^3/uL (1.5-5.0); LYMPH % 17.6 % (24.0-44.0); MEAN CORPUSCULAR HEMOGLOBIN 28.4 pg (27.0-33.0); MEAN CORPUSCULAR VOLUME 85.8 fl (80.0-96.0); MONO # 0.7 10^3/uL (0.0-0.8); NEUTROPHILS # 4.7 10^3/uL (1.5-8.5); NEUTROPHILS % 68.2 % (36.0-66.0); PLATELET COUNT, AUTOMATED 277 10^3/uL (150-450); RED BLOOD COUNT 4.09 10^6/uL (4.30-6.10); WHITE BLOOD COUNT 6.9 10^3/uL (4.0-10.0)
[2023-04-05] MEDS: LEVEMIR (INSULIN DETEMIR) 1 UNITS/0.01ML SC SCH ×2 (08:15→20:52)
[2023-04-05] MEDS: INSULIN LISPRO (NovoLOG) PER UNIT SC SCH ×4 (08:16→20:28)
[2023-04-05 08:19] VITALS: BP 120/79
[2023-04-05] MEDS: ENOXAPARIN 40MG/0.4ML SYRINGE (J1650 PER 10MG) SC SCH (08:19)
[2023-04-05] MEDS: VANICREAM MOISTURIZING SKIN CREAM 113GM TUBE TOP SCH ×2 (08:19→20:57)
[2023-04-05] MEDS ORDERED: BISACODYL 10MG SUPP PR PRN (08:20)
[2023-04-05 09:35] VITALS: O2SAT 91
[2023-04-05 09:42] VITALS: O2SAT 90
[2023-04-05 11:03] LABS: PROCALCITONIN 0.23 NG/ML (0.0-0.08)
[2023-04-05 14:00] VITALS: BP 108/85; TEMP 97.9; O2SAT 98
[2023-04-05 15:48] LABS: BLOOD UREA NITROGEN 14 MG/DL (7-21); GLUCOSE, FASTING 178 MG/DL (70-99)
[2023-04-05 15:49] LABS: CALCIUM LEVEL 8.3 MG/DL (8.4-10.2); CARBON DIOXIDE LEVEL 28 MEQ/L (22-30); CHLORIDE LEVEL 100 MEQ/L (98-107); CREATININE FOR GFR 0.7 MG/DL (0.7-1.5); GLOMERULAR FILTRATION RATE > 60.0 (>56); POTASSIUM SERUM 5.2 MEQ/L (3.6-5.0); SODIUM LEVEL 136 MEQ/L (134-153)
[2023-04-05] MEDS ORDERED: DALBAVANCIN 1,500 MG in D5W 250 ML IV ONE (18:00)
[2023-04-05] MEDS: ACETAMINOPHEN TAB 650MG DOSE (2X325MG) PO PRN (18:47)
[2023-04-05 20:00] VITALS: BP 119/87; TEMP 98.2; O2SAT 99
[2023-04-06 05:56] VITALS: BP 138/84; TEMP 97.9; O2SAT 95
[2023-04-06 06:00] LABS: HEMATOCRIT 37.5 % (42.0-52.0); HEMOGLOBIN 12.3 g/dl (13.5-17.5); MEAN CORPUSCULAR HEMOGLOBIN 28.1 pg (27.0-33.0); MEAN CORPUSCULAR HGB CONC 32.8 g/dl (32.0-36.5); MEAN CORPUSCULAR VOLUME 85.8 fl (80.0-96.0); PLATELET COUNT, AUTOMATED 314 10^3/uL (150-450); RED BLOOD COUNT 4.37 10^6/uL (4.30-6.10); WHITE BLOOD COUNT 7.7 10^3/uL (4.0-10.0)
[2023-04-06 06:21] LABS: BLOOD UREA NITROGEN 15 MG/DL (9-23); CALCIUM LEVEL 8.1 MG/DL (8.5-10.1); CARBON DIOXIDE LEVEL 27 MMOL/L (20-31); CHLORIDE LEVEL 101 MMOL/L (98-107); CREATININE FOR GFR 0.69 MG/DL (0.70-1.30); GLOMERULAR FILTRATION RATE > 60.0 (>56); GLUCOSE, FASTING 305 MG/DL (60-100); POTASSIUM SERUM 4.5 MMOL/L (3.5-5.1); SODIUM LEVEL 135 MMOL/L (136-145)
[2023-04-06] MEDS ORDERED: METF-414 PO (08:03)
[2023-04-06] MEDS ORDERED: NOVOINJ13 SC ×2 (08:03→10:10)
[2023-04-06] MEDS ORDERED: LISI20TA33 PO (08:03)
[2023-04-06] MEDS ORDERED: GLIP10TA6 PO (08:03)
[2023-04-06] MEDS ORDERED: FLUO20CA22 PO (08:03)
[2023-04-06] MEDS ORDERED: ASPI-161 PO (08:03)
[2023-04-06 08:04] VITALS: BP 135/90; TEMP 98.3; O2SAT 93
[2023-04-06] MEDS: INSULIN LISPRO (NovoLOG) PER UNIT SC SCH ×2 (08:36→12:23)
[2023-04-06] MEDS: LEVEMIR (INSULIN DETEMIR) 1 UNITS/0.01ML SC SCH (08:36)
[2023-04-06] MEDS: VANICREAM MOISTURIZING SKIN CREAM 113GM TUBE TOP SCH (08:37)
[2023-04-06] MEDS: ENOXAPARIN 40MG/0.4ML SYRINGE (J1650 PER 10MG) SC SCH (08:37)
[2023-04-06] MEDS ORDERED: METF10004 PO (10:10)
[2023-04-06 14:23] LABS: BLOOD UREA NITROGEN 15 MG/DL (7-21); CREATININE FOR GFR 0.6 MG/DL (0.7-1.5); GLOMERULAR FILTRATION RATE > 60.0 (>56); GLUCOSE, FASTING 187 MG/DL (70-99)
[2023-04-06 14:24] LABS: C REACTIVE PROTEIN QUANTITATIV 126.07 MG/L (1.00-3.00); CALCIUM LEVEL 7.9 MG/DL (8.4-10.2); CARBON DIOXIDE LEVEL 25 MEQ/L (22-30); CHLORIDE LEVEL 100 MEQ/L (98-107); POTASSIUM SERUM 4.1 MEQ/L (3.6-5.0); SODIUM LEVEL 135 MEQ/L (134-153)
== END 2023-04-06 12:39 | disposition home or self-care (01) | DRG 951 ==
LOC: M ED 23:42 → M ED INP 04-02 02:41 → M ICU 04-02 03:25 → M MSPAV 04-04 12:53
PROVIDERS: ADMIT Family Medicine; ATTEND Internal Medicine
PROC: 0P9 Upper Bones, Drainage (ICD-10-PCS; principal; 2023-04-02)
DX: L02.511 Cutaneous abscess of right hand (principal); R45.851 Suicidal ideations; E11.628 Type 2 diabetes mellitus with other skin complications; E11.65 Type 2 diabetes mellitus with hyperglycemia; E87.5 Hyperkalemia; F33.1 Major depressive disorder, recurrent, moderate; I10 Essential (primary) hypertension; L03.113 Cellulitis of right upper limb; B95.1 Streptococcus, group B, as the cause of diseases classified elsewhere; E78.5 Hyperlipidemia, unspecified; Z79.4 Long term (current) use of insulin; Z79.84 Long term (current) use of oral hypoglycemic drugs; Z79.82 Long term (current) use of aspirin; Z20.822 Contact with and (suspected) exposure to COVID-19